=== PATIENT | male | born 1995 | race Caucasian/White ===

== ENCOUNTER 2017-05-24 10:16 | Emergency (ER) | payer SELFPAY ==
[~2017-05-24] VITALS: Ht 182.9 cm; Wt 90.0 kg
[~2017-05-24 10:16] MED LIST: TIMO0.5S4 RIGHT EYE; ZOFR4TAB3 PO
[2017-05-24 10:23] VITALS: BP 146/63; PULSE 70; RESP 18; TEMP 98.2; O2SAT 98
[2017-05-24 10:49] LABS: BILIRUBIN, URINE NEG (NEG); BLOOD, URINE TRACE (NEG); GLUCOSE,URINE NEG (NEG); KETONE, URINE NEG (NEG); NITRITE,URINE NEG (NEG); URINE COLOR YELLOW (YELLW/STRAW); URINE LEUKOCYTE ESTERASE NEG (NEG)
[2017-05-24] MEDS ORDERED: LIDOCAINE HCL 1% 20 ML VIAL ONE (10:59)
[2017-05-24] MEDS ORDERED: LIDOCAINE HCL 1% PF 10 ML VIAL ONE (11:00)
[2017-05-24] MEDS ORDERED: cefTRIAXone 250 MG VIAL IM ONE (11:00)
[2017-05-24] MEDS ORDERED: AZITHROMYCIN PWD FOR SUSP 1 GM PACKET PO ONE (11:00)
[2017-05-24] MEDS ORDERED: LIDOCAINE HCL 1% 50 ML VIAL XX ONE (11:00)
--- NOTE | 2017-05-24 11:01 | PD ---
HPI Chief Complaint: Complaint Time Seen by Provider: 10:46 Travel History International Travel<30 days: No Contact w/Intl Traveler<30days: No Traveled to known affect area: No History of Present Illness HPI 22yo M with no PMH presents to the ED with c/o right scrotal swelling for 2-3 months. Said when he wakes up, it is not as swollen but after standing all day and doing things during the day, it becomes more swollen by night time. No pain except when he coughs. Pt also has some discomfort when he first urinates for a few days. He is sexually active with multiple partners. Denies any penile rash, penile discharge, fever, chest pain, sob, n/v, abdominal pain or testicular trauma. Pt decides to come today because he was off work. PFSH Past Medical History Diminished Hearing: No Glaucoma: Yes (right eye, d/t injury) Immunizations Current: Yes Influenza Vaccination: No Past Surgical History Eye Surgery: Yes (CATARACT FROM BEING POKED IN EYE 2004.RIGHT LENS IMPLANT 2007 ) Social History Alcohol Use: Yes (SOC) Tobacco Use: No Substance Use: Yes (CANNIBIS) Allergies-Medications (Allergen,Severity, Reaction): Uncoded Allergies: ANTIBIOT (Allergy, Mild, PINK IN COLOR? rash, 10/17/16) PT STATES NKA. Reported Meds & Prescriptions Reported Meds & Active Scripts Active No Active Prescriptions or Reported Medications Review of Systems Except as stated in HPI: all other systems reviewed are Neg Physical Exam Narrative GENERAL: 22yo M not in distress. SKIN: Focused skin assessment warm/dry. HEAD: Atraumatic. Normocephalic. CARDIOVASCULAR: Regular rate and rhythm. No murmur appreciated. RESPIRATORY: No accessory muscle use. Clear to auscultation. Breath sounds equal bilaterally. GASTROINTESTINAL: Abdomen soft, non-tender, nondistended. : Right testicle is more elevated than left and pt said this is new. Right scrotal is larger than left. No tenderness to palpation in either testes. No penile discharge. No penile rash. MUSCULOSKELETAL: No obvious deformities. No clubbing. No cyanosis. No edema. NEUROLOGICAL: Awake and alert. No obvious cranial nerve deficits. Motor grossly within normal limits. Normal speech. PSYCHIATRIC: Appropriate mood and affect; insight and judgment normal. Data Data Last Documented VS Vital Signs Date Time Temp Pulse Resp B/P (MAP) Pulse Ox O2 Delivery O2 Flow Rate FiO2 05/24/17 12:45 67 16 117/75 (89) 99 05/24/17 10:23 98.2 Room Air Orders Orders Urinalysis - C+S If Indicated (05/24/17 10:36) Us Testicles W Doppler (05/24/17 ) Gc And Chlamydia Pcr (05/24/17 10:51) Azithromycin Powd Pack (Zithromax Powd P (05/24/17 11:00) Ceftriaxone Inj (Rocephin Inj) (05/24/17 11:00) Lidocaine 1% Inj (50 Ml) (Xylocaine 1% I (05/24/17 11:00) Lidocaine 1% Inj (Xylocaine 1% Inj) (05/24/17 10:59) Lidocaine Pf 1% Inj (Xylocaine-Mpf 1% In (05/24/17 11:00) Urine Culture (05/24/17 10:20) Labs Laboratory Tests Test 05/24/17 10:20 05/24/17 10:40 Urine Collection Type CLEAN CATCH Urine Color YELLOW Urine Turbidity CLEAR Urine pH 6.0 Urine Specific [place] 1.025 Urine Protein NEG mg/dL Urine Glucose (UA) NEG mg/dL Urine Ketones NEG mg/dL Urine Occult Blood TRACE Urine Nitrite NEG Urine Bilirubin NEG Urine Urobilinogen 0.2 MG/DL Urine Leukocyte Esterase NEG Urine RBC 0-3 /hpf Urine WBC 15-19 /hpf Urine Squamous Epithelial Cells 0-5 /hpf Microscopic Urinalysis Comment CULTURE INDICATED Urine Collection Time 10:20 MDM Medical Decision Making Medical Screen Exam Complete: Yes Emergency Medical Condition: Yes Differential Diagnosis Hydrocele vs. inguinal hernia vs. epididymitis vs. testicular torsion (less likely) Narrative Course 22yo M with intermittent right scrotal swelling for 2-3 months. Pt is sexually active with multiple partners and has some discomfort starting urination so will cover with azithromycin and ceftriaxone for GC/chlamydia. UA showed WBC 15 -19, will cover with antibiotics. US scrotum showed both testicles are grossly within normal limites. Moderate right sided hydrocele. Small 1.3cm complex area associated with right epididymal head that may be a complex cyst versus appendage. Instructed pt to follow up with urology as needed. Pt has no pain. Return precautions given. Diagnosis Primary Impression: Hydrocele in adult Referrals: Vignesh Sandoval DO as needed Patient Instructions: General Instructions Departure Forms: Tests/Procedures Additional Instructions: Please follow up with urology clinic as needed. Return to the ED if symptoms worsen. Med/Other Pt SpecificInfo: Prescription(s) given Scripts Sulfamethoxazole-Trimethoprim (Bactrim DS) 800-160 Mg Tab 1 TAB PO BID for Infection, #6 TAB 0 Refills Prov: Karely Ro DO 05/24/17 Disposition: 01 DISCHARGE HOME Condition: Stable Karely Ro DO May 24, 2017 11:01
[2017-05-24 11:04] LABS: WBC, URINE 15-19 /hpf (0-5)
[2017-05-24 11:05] LABS: RBC, URINE 0-3 /hpf (0-3); SQUAMOUS EPITHELIAL CELL URINE 0-5 /hpf (0-5)
--- NOTE | 2017-05-24 12:05 | RADRPT ---
EXAM DATE/TIME: 05/24/2017 11:41 [facility] COMPARISON: No previous studies available for comparison. INDICATIONS : Right testicular swelling at night. MEDICAL HISTORY : Traumatic glaucoma. SURGICAL HISTORY : Right eye lens implant ENCOUNTER: Initial ACUITY: 1 day PAIN SCORE: 0/10 LOCATION: Bilateral Testicle MEASUREMENTS: RIGHT TESTICLE: 3.7 x 2.3 x 1.8cm LEFT TESTICLE: 5.0 x 3.6 x 2.1cm FINDINGS: RIGHT TESTICLE: Homogeneous echotexture without intra or extratesticular mass. Blood flow is symmetric and within no rmal limits. No varicocele. Small complex area at the right epididymal head measuring 1.3 cm. Comple x cyst versus appendage. Otherwise the epididymis appears to be unremarkable. There is a moderate hyd rocele present.. LEFT TESTICLE: Homogeneous echotexture without intra or extratesticular mass. Blood flow is symmetric and within no rmal limits. There is a small hydrocele on the left side.. Epididymis is within normal limits. Ther e is a small left varicocele. SCROTUM: Within normal limits. CONCLUSION: 1. Both testicles are grossly within normal limits. 2. Moderate right-sided hydrocele. 3. Small left-sided hydrocele. 4. Small left varicocele 5. Small 1.3 cm complex area associated with the right epididymal head. This may be a complex cyst ve rsus appendage. Nehemias Virk MD on May 24, 2017 at 12:00 Board Certified Radiologist. This report was verified electronically.
[2017-05-24 12:45] VITALS: BP 117/75; PULSE 67; RESP 16; O2SAT 99
[2017-05-24] MEDS ORDERED: BACT800T5 PO (13:29)
== END 2017-05-24 13:35 | disposition home or self-care (01) ==
LOC: PHED 10:16
DX: N43.3 Hydrocele, unspecified (principal)
CPT/HCPCS: 76870; 81001; 87086; 87491; 87591; 93975; 96372; 99285; J0696